=== PATIENT | female | born 1945 | race Caucasian/White ===

== ENCOUNTER 2022-10-06 19:48 | Emergency (ER) | payer MEDICARE, OTHER ==
[2022-10-06] MEDS ORDERED: Sodium Chloride 0.9% 1000 ML 1,000 ML IV STA (20:06)
[2022-10-06] MEDS ORDERED: Zofran 4 MG/2 ML VIAL IV ONE (20:07)
[2022-10-06] MEDS ORDERED: Adenocard IV 6 MG/2 ML IV ONE ×2 (20:07→20:08)
[2022-10-06] MEDS ORDERED: Sodium Chloride 0.9% 1000 ML 1,000 ML ONE (20:08)
[2022-10-06] MEDS ORDERED: Zofran 4 MG/2 ML VIAL ONE (20:10)
[2022-10-06 20:29] LABS: Absolute Neutrophil Ct (ANC) 5.34 x10^3/uL (1.4-6.9); Basophil (Absolute #) 0.03 x10^3/uL (0-0.4); Eosinophil % 0.6 % (0.00-5.0); Eosinophil (Absolute #) 0.04 x10^3/uL (0-0.5); Hematocrit 46.1 % (35-47); Hemoglobin 14.6 g/dL (12.0-16.0); Lymphocytes % 15.2 % (24.0-44.0); Mean Cell Volume 91.3 fL (78-100); Mean Corpuscular Hemoglobin 28.9 pg (26-32); Mean Corpuscular Hgb Concent. 31.7 g/dL (32-36); Mean Platelet Volume 10.7 fL (7.5-11.0); Monocyte (Absolute #) 0.69 x10^3/uL (0.0-1.3); Monocytes % 9.6 % (0.0-12.0); Neutrophil % 73.9 % (36.0-66.0); Platelet Count 189 x10^3/uL (150-450); Red Blood Count 5.05 x10^6/uL (4.1-5.4); Red Cell Distribution Width 13.4 % (11.5-14.0); White Blood Count 7.2 x10^3/uL (4.0-10.5)
[2022-10-06 20:52] LABS: ANION GAP 15.3 MEQ/L (5-15); BILIRUBIN,TOTAL 0.6 mg/dL (0.2-1.3); Calcium 8.5 mg/dL (8.4-10.2); Creatinine 1 1.2 mg/dL (0.52-1.04); EST GLOMERULAR FILTRATION RATE 46.5 ML/MIN; MAGNESIUM 1.7 mg/dL (1.6-2.3); Total Protein 6.7 g/dL (6.3-8.2)
[2022-10-06 20:56] VITALS: O2SAT 94
--- NOTE | 2022-10-06 21:27 | XRAY ---
Indication: Palpitations. Tachycardia. Comparison: January 07, 2012 Portable chest again demonstrates left mid lung subsegmental atelectasis/scarring. Remaining heart and lungs unremarkable. Bony thorax intact again with osteopenia and degenerative changes. No new/acute findings. Impression: Continued nonacute chest with chronic features.
--- NOTE | 2022-10-06 21:47 | ERPHSYRPT ---
- History of Present Illness Time Seen by Provider: 10/06/22 19:51 Historian: patient Exam Limitations: no limitations Patient Subjective Stated Complaint: pt stated she had been feeling like her heart rate was very high and when checked would not register on her monitor at home. pt states she has a hx of svt. Triage Nursing Assessment: pt alert and oriented, answers questions approp. pt back to room per wheelchair. respirations nonlabored. skin warm, moist on arrival to er. heart rate 150's on monitor. Physician History: 77 years old female with history of SVT, hypertension, congestive heart failure, obstructive sleep apnea presented in the ER with chief complaint of palpitations/racing of the heart for the last couple of hours. Patient reports it seems that she has SVT because she tried to check her heart rate and was not recordable. Patient does report some chest tightness and pressure associated with it. Reports having similar symptoms multiple times in the past needing adenosine and converts back to normal sinus. Patient reports having cough congestion for the last couple of days with low-grade fever and chills. Timing/Duration: hour(s) (2), constant, sudden Activities at Onset: rest Quality: fullness, pressure Location: substernal Chest Pain Radiation: no radiation Severity of Pain-Max: mild Severity of Pain-Current: mild Modifying Factors: Improves With: nothing Associated Symptoms: cough, chills, fever, fatigue Nitro Today/Relief: no nitro taken today Aspirin Treatment Today: 81 mg x 1 Allergies/Adverse Reactions: Sulfa (Sulfonamide Antibiotics) Allergy (Unknown, Verified 10/06/22 20:21) Hx Tetanus, Diphtheria Vaccination/Date Given: Yes Hx Influenza Vaccination/Date Given: No Hx Pneumococcal Vaccination/Date Given: Yes (aug 2011) Immunizations Up to Date: Yes Travel Risk - International Travel Have you traveled outside of the country in past 3 weeks: No - Coronavirus Screening Are you exhibiting any of the following symptoms?: Yes Symptoms: Fever, Cough: New Onset, Shortness of Breath Close contact with a COVID-19 positive Pt in past 14-21 Days: No - Vaccine Status Have you recieved a Covid-19 vaccination: Yes 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: [employer] - Review of Systems Constitutional: Fever, Chills, Fatigue, Weakness Eyes: No Symptoms Ears, Nose, & Throat: Nose Congestion Respiratory: Cough, Dyspnea Cardiac: Chest Pain Abdominal/Gastrointestinal: No Symptoms Genitourinary Symptoms: No Symptoms Musculoskeletal: No Symptoms Skin: No Symptoms Neurological: No Symptoms Psychological: No Symptoms Endocrine: No Symptoms Hematologic/Lymphatic: No Symptoms Immunological/Allergic: No Symptoms - Past Medical History Cardiac History: Arrhythmia Endocrine Medical History: Diabetes Type II GI Medical History: GERD Other Medical History: hx of svt - Past Surgical History Gastrointestinal: Cholecystectomy Genitourinary: Other Musculoskeletal: Orthopedic Surgery Female Surgical History: Hysterectomy Other Surgical History: thyroidectomy, bilat knee surgeries, achilles tendon, heel spur removal - Social History Smoking Status: Never smoker Exposure to second hand smoke: Yes Drug Use: none Patient Lives Alone: No - Nursing Vital Signs Nursing Vital Signs: Initial Vital Signs Pulse Rate 156 H 10/06/22 19:49 Respiratory Rate 18 10/06/22 19:49 Blood Pressure 109/65 10/06/22 19:49 O2 Sat by Pulse Oximetry 97 10/06/22 19:49 Pain Scale Pain Intensity 0 - Physical Exam General Appearance: no apparent distress, alert Eye Exam: PERRL/EOMI Ears, Nose, Throat Exam: moist mucous membranes, pharyngeal erythema Neck Exam: normal inspection, non-tender, supple, full range of motion Respiratory Exam: normal breath sounds, lungs clear Cardiovascular Exam: normal heart sounds, tachycardia Gastrointestinal/Abdomen Exam: soft, normal bowel sounds, No tenderness Back Exam: normal inspection, normal range of motion Extremity Exam: normal inspection, normal range of motion Neurologic Exam: alert, oriented x 3, cooperative Skin Exam: normal color SpO2 Interpretation: normal SpO2: 94 O2 Delivery: Room Air - Course EKG Interpreted by Me: RATE (151), SVT, NORMAL AXIS, NORMAL INTERVALS, Q-wave (Second EKG time 2013. Rate 105 rhythm sinus tach, left axis deviation, prolonged QT interval. No ST elevation. Third EKG time 2053. Rate 90, rhythm sinus, left axis deviation, anterior Q waves. No ST elevation.), Non-specific ST Changes Ordered Tests: Active Orders 24 hr Category Date Time Status Evs Manager STAT Care 10/06/22 20:06 Completed EKG-ER Only STAT Care 10/06/22 20:06 Completed IV Insertion STAT Care 10/06/22 20:06 Completed CHEST 1 VIEW (PORTABLE) Stat Exams 10/06/22 20:06 Completed BLOOD CULTURE Stat Lab 10/06/22 20:06 Received CBC W DIFF Stat Lab 10/06/22 20:26 Completed CMP Stat Lab 10/06/22 20:26 Completed Lactic Acid Stat Lab 10/06/22 20:27 Completed Lactic Acid Stat Lab 10/06/22 22:33 Completed MAGNESIUM Stat Lab 10/06/22 20:26 Completed NT PRO BNP Stat Lab 10/06/22 20:26 Completed PROCALCITONIN Stat Lab 10/06/22 20:26 Completed TROPONIN Q4H Lab 10/06/22 20:26 Completed Medication Summary Discontinued Medications Generic Name Dose Route Start Last Admin Trade Name Kolbyq PRN Reason Stop Dose Admin Adenosine 6 mg 10/06/22 20:07 10/06/22 20:13 Adenosine 6 Mg/2 Ml Vial IV 10/06/22 20:08 6 mg STAT ONE Administration Adenosine Confirm 10/06/22 20:08 Adenosine 6 Mg/2 Ml Vial Administered 10/06/22 20:09 Dose 6 mg IV .STK-MED ONE Doxycycline Hyclate 100 mg 10/06/22 21:57 10/06/22 22:24 Doxycycline Hyclate 100 Mg Tablet PO 10/06/22 21:58 100 mg STAT ONE Administration Doxycycline Hyclate Confirm 10/06/22 22:23 Doxycycline Hyclate 100 Mg Tablet Administered 10/06/22 22:24 Dose 100 mg .ROUTE .STK-MED ONE Sodium Chloride 1,000 mls @ 999 mls/hr 10/06/22 20:06 10/06/22 22:46 Sodium Chloride 0.9% 1000 Ml IV 10/06/22 21:06 Infused .Q1H1M STA Infusion Sodium Chloride Confirm 10/06/22 20:08 Sodium Chloride 0.9% 1000 Ml Administered 10/06/22 20:09 Dose 1,000 mls @ ud .ROUTE .STK-MED ONE Ondansetron HCl 4 mg 10/06/22 20:07 10/06/22 20:11 Ondansetron Hcl 4 Mg/2 Ml Vial IV 10/06/22 20:08 4 mg STAT ONE Administration Ondansetron HCl Confirm 10/06/22 20:10 Ondansetron Hcl 4 Mg/2 Ml Vial Administered 10/06/22 20:11 Dose 4 mg .ROUTE .STK-MED ONE Oseltamivir Phosphate 75 mg 10/06/22 23:01 11/26/22 23:02 Oseltamivir 75 Mg Cap PO 10/06/22 23:02 Not Given STAT ONE Lab/Rad Data: Laboratory Result Diagrams 10/06/22 20:26 10/06/22 20:26 Laboratory Results 10/06/22 10/06/22 10/06/22 Range/Units 22:33 21:24 20:27 WBC (4.0-10.5) x10^3/uL RBC (4.1-5.4) x10^6/uL Hgb (12.0-16.0) g/dL Hct (35-47) % MCV (78-100) fL MCH (26-32) pg MCHC (32-36) g/dL RDW (11.5-14.0) % Plt Count (150-450) x10^3/uL MPV (7.5-11.0) fL Gran % (36.0-66.0) % Immature Gran % (Auto) (0.00-0.4) % Nucleat RBC Rel Count (0.00-0.1) % Eos # (Auto) (0-0.5) x10^3/uL Immature Gran # (Auto) (0.00-0.03) x10^3u/L Absolute Lymphs (auto) (1.0-4.6) x10^3/uL Absolute Monos (auto) (0.0-1.3) x10^3/uL Absolute Nucleated RBC (0.00-0.01) x10^3u/L Lymphocytes % (24.0-44.0) % Monocytes % (0.0-12.0) % Eosinophils % (0.00-5.0) % Basophils % (0.0-0.4) % Absolute Granulocytes (1.4-6.9) x10^3/uL Basophils # (0-0.4) x10^3/uL Sodium (137-145) mmol/L Potassium (3.5-5.1) mmol/L Chloride (98-107) mmol/L Carbon Dioxide (22-30) mmol/L Anion Gap (5-15) MEQ/L BUN (7-17) mg/dL Creatinine (0.52-1.04) mg/dL Estimated GFR ML/MIN Glucose (74-106) mg/dL Lactic Acid 0.9 3.4 H (0.4-2.0) Calcium (8.4-10.2) mg/dL Magnesium (1.6-2.3) mg/dL Total Bilirubin (0.2-1.3) mg/dL AST (14-36) U/L ALT (0-35) U/L Alkaline Phosphatase (38-126) U/L Troponin I (0.000-0.034) ng/mL NT-Pro-B Natriuret Pep (0-1800) pg/mL Serum Total Protein (6.3-8.2) g/dL Albumin (3.5-5.0) g/dL Procalcitonin (0.030-0.080) ng/mL Influenza Type A Ag POSITIVE (NEGATIVE) Influenza Type B Ag NEGATIVE (NEGATIVE) RSV (PCR) NEGATIVE (Negative) SARS-CoV-2 (PCR) NEGATIVE (NEGATIVE) 10/06/22 10/06/22 10/06/22 Range/Units 20:26 20:26 20:26 WBC (4.0-10.5) x10^3/uL RBC (4.1-5.4) x10^6/uL Hgb (12.0-16.0) g/dL Hct (35-47) % MCV (78-100) fL MCH (26-32) pg MCHC (32-36) g/dL RDW (11.5-14.0) % Plt Count (150-450) x10^3/uL MPV (7.5-11.0) fL Gran % (36.0-66.0) % Immature Gran % (Auto) (0.00-0.4) % Nucleat RBC Rel Count (0.00-0.1) % Eos # (Auto) (0-0.5) x10^3/uL Immature Gran # (Auto) (0.00-0.03) x10^3u/L Absolute Lymphs (auto) (1.0-4.6) x10^3/uL Absolute Monos (auto) (0.0-1.3) x10^3/uL Absolute Nucleated RBC (0.00-0.01) x10^3u/L Lymphocytes % (24.0-44.0) % Monocytes % (0.0-12.0) % Eosinophils % (0.00-5.0) % Basophils % (0.0-0.4) % Absolute Granulocytes (1.4-6.9) x10^3/uL Basophils # (0-0.4) x10^3/uL Sodium 130 L (137-145) mmol/L Potassium 4.0 (3.5-5.1) mmol/L Chloride 94 L (98-107) mmol/L Carbon Dioxide 25 (22-30) mmol/L Anion Gap 15.3 H (5-15) MEQ/L BUN 17 (7-17) mg/dL Creatinine 1.20 H (0.52-1.04) mg/dL Estimated GFR 46.5 ML/MIN Glucose 219 H (74-106) mg/dL Lactic Acid (0.4-2.0) Calcium 8.5 (8.4-10.2) mg/dL Magnesium 1.7 (1.6-2.3) mg/dL Total Bilirubin 0.60 (0.2-1.3) mg/dL AST 26 (14-36) U/L ALT 20 (0-35) U/L Alkaline Phosphatase 90 (38-126) U/L Troponin I < 0.012 (0.000-0.034) ng/mL NT-Pro-B Natriuret Pep 347 (0-1800) pg/mL Serum Total Protein 6.7 (6.3-8.2) g/dL Albumin 4.0 (3.5-5.0) g/dL Procalcitonin 0.538 H (0.030-0.080) ng/mL Influenza Type A Ag (NEGATIVE) Influenza Type B Ag (NEGATIVE) RSV (PCR) (Negative) SARS-CoV-2 (PCR) (NEGATIVE) 10/06/22 Range/Units 20:26 WBC 7.2 (4.0-10.5) x10^3/uL RBC 5.05 (4.1-5.4) x10^6/uL Hgb 14.6 (12.0-16.0) g/dL Hct 46.1 (35-47) % MCV 91.3 (78-100) fL MCH 28.9 (26-32) pg MCHC 31.7 L (32-36) g/dL RDW 13.4 (11.5-14.0) % Plt Count 189 (150-450) x10^3/uL MPV 10.7 (7.5-11.0) fL Gran % 73.9 H (36.0-66.0) % Immature Gran % (Auto) 0.3 (0.00-0.4) % Nucleat RBC Rel Count 0.0 (0.00-0.1) % Eos # (Auto) 0.04 (0-0.5) x10^3/uL Immature Gran # (Auto) 0.02 (0.00-0.03) x10^3u/L Absolute Lymphs (auto) 1.10 (1.0-4.6) x10^3/uL Absolute Monos (auto) 0.69 (0.0-1.3) x10^3/uL Absolute Nucleated RBC 0.00 (0.00-0.01) x10^3u/L Lymphocytes % 15.2 L (24.0-44.0) % Monocytes % 9.6 (0.0-12.0) % Eosinophils % 0.6 (0.00-5.0) % Basophils % 0.4 (0.0-0.4) % Absolute Granulocytes 5.34 (1.4-6.9) x10^3/uL Basophils # 0.03 (0-0.4) x10^3/uL Sodium (137-145) mmol/L Potassium (3.5-5.1) mmol/L Chloride (98-107) mmol/L Carbon Dioxide (22-30) mmol/L Anion Gap (5-15) MEQ/L BUN (7-17) mg/dL Creatinine (0.52-1.04) mg/dL Estimated GFR ML/MIN Glucose (74-106) mg/dL Lactic Acid (0.4-2.0) Calcium (8.4-10.2) mg/dL Magnesium (1.6-2.3) mg/dL Total Bilirubin (0.2-1.3) mg/dL AST (14-36) U/L ALT (0-35) U/L Alkaline Phosphatase (38-126) U/L Troponin I (0.000-0.034) ng/mL NT-Pro-B Natriuret Pep (0-1800) pg/mL Serum Total Protein (6.3-8.2) g/dL Albumin (3.5-5.0) g/dL Procalcitonin (0.030-0.080) ng/mL Influenza Type A Ag (NEGATIVE) Influenza Type B Ag (NEGATIVE) RSV (PCR) (Negative) SARS-CoV-2 (PCR) (NEGATIVE) - Progress Progress: improved Air Movement: good Progress Note: 77-year-old is evaluated for palpitations. Patient is in SVT. Given adenosine 6 and she converted to normal sinus. I have obtained an x-ray which negative for any acute cardiopulmonary findings. She has a normal white count, chemistry profile showed mild SIMIN and given a fluid bolus. Patient has a positive lactate of 3.4 and procalcitonin 0.5. I believe patient has bronchitis, started on doxycycline as patient does not want to stay in the hospital and preferred to go home. She also has positive influenza A and started on Tamiflu. She remained in sinus rhythm throughout her stay in the ER. I have offered her observation admission but she does not want to stay in the hospital and wants to go home. Discussed signs symptoms of worsening needing return to ER which she seems under standing. Stable for discharge. 10/06/22 23:01 Blood Culture(s) Obtained: Yes Antibiotics given: Yes Counseled pt/family regarding: lab results, diagnosis, rad results - Departure Departure Disposition: Home Clinical Impression: Paroxysmal SVT (supraventricular tachycardia), Influenza A, Bronchitis Condition: Stable Critical Care Time: Yes Critical Care Time(excluding separately billable procedures): Critical 30-74 mins Referrals: WHIT CLOUD MD [Primary Care Provider] - Follow up/PCP as directed (In 2 days for reevaluation) KIM TOM [ACTIVE STAFF] - Follow up/PCP as directed (Call Saturday morning for appointment for reevaluation) Instructions: Flu, Adult (DC), Supraventricular Tachycardia (SVT) Additional Instructions: Take Tylenol as needed. Follow-up with primary care for reevaluation. Return to ER for worsening of symptoms like productive cough, difficulty breathing, hi gh-grade fever chills etc. Follow-up with your computer assistant for reevaluation. Prescriptions: Oseltamivir 75 mg [Tamiflu 75MG Capsule] 75 mg PO BID #10 cap Doxycycline Hyclate 100 mg [Vibramycin 100 MG] 100 mg PO BID #14 tab
[2022-10-06] MEDS ORDERED: Vibramycin 100 MG PO ONE (21:57)
[2022-10-06 22:07] LABS: INFLUENZA B NEGATIVE (NEGATIVE); RESPIRATORY SYNCTIAL VIRUS NEGATIVE (Negative); SARS-CoV-2 Xpert Express NEGATIVE (NEGATIVE)
[2022-10-06 22:11] LABS: INFLUENZA A POSITIVE (NEGATIVE)
[2022-10-06] MEDS ORDERED: Vibramycin 100 MG ONE (22:23)
[2022-10-06] MEDS ORDERED: Tamiflu 75MG Capsule PO ONE (23:01)
[2022-10-06 23:04] VITALS: BP 146/77; PULSE 77
== END 2022-10-06 23:38 | disposition home or self-care (01) ==
LOC: ED 19:48
DX: I47.1 Supraventricular tachycardia (principal); J10.1 Influenza due to other identified influenza virus with other respiratory manifestations; J40 Bronchitis, not specified as acute or chronic; R07.9 Chest pain, unspecified; R05.1 Acute cough; R09.81 Nasal congestion; R50.9 Fever, unspecified; I11.0 Hypertensive heart disease with heart failure; I50.9 Heart failure, unspecified; E11.9 Type 2 diabetes mellitus without complications
CPT/HCPCS: 0241U; 36000; 36415; 71045; 80053; 83605; 83735; 83880; 84145; 84484; 85025; 87040; 93005; 93041; 96374; 96375; 99284; 99291; J0153; J2405; A9270-GY

== ENCOUNTER 2024-05-19 12:31 | Emergency (ER) | payer MEDICARE, OTHER ==
[2024-05-19 12:51] VITALS: RESP 20; TEMP 97.8; O2SAT 97
--- NOTE | 2024-05-19 13:08 | ERPHSYRPT ---
- History of Present Illness Time Seen by Provider: 05/19/24 13:00 Source: patient Exam Limitations: no limitations Patient Subjective Stated Complaint: PT states "I have had a hernia for years but it split open yesterday and I went to the clinic and they told me that it w as infected and gave me an antibiotic and cream. It is split open twice as much today as yesterday." Triage Nursing Assessment: PT presented alert and oriented X 3, skin wpd. Pt ambulates with a slow gait, able to speak in clear full sentences. Pt has red raised wound noted to right lower abdomen wound has slight pirulent discharge Physician History: 78-year-old female presents to our ED for an evaluation of an abscess that spontaneously drained. Patient states the abscess began as a pustule. An increase in size she followed up at urgent care. Patient was started on doxycycline. Overnight the pustule ruptured and is now draining. Patient became concerned and came to our ED. No systemic manifestations. No fever. Pain is minimal. Patient declined pain medication. Patient voices no other complaints or concerns at this time. Portions of this note were created with voice recognition technology. There may be grammatical, spelling, punctuation or sound alike errors Timing/Duration: yesterday Severity: moderate Modifying Factors: Improves With: nothing Associated Symptoms: denies symptoms Allergies/Adverse Reactions: Sulfa (Sulfonamide Antibiotics) Allergy (Unknown, Verified 10/06/22 20:21) Home Medications: Mupirocin 1 gm TP DAILY 05/19/24 [History] Hx Tetanus, Diphtheria Vaccination/Date Given: Yes Hx Influenza Vaccination/Date Given: No Hx Pneumococcal Vaccination/Date Given: Yes (aug 2011) Immunizations Up to Date: No Travel Risk - International Travel Have you traveled outside of the country in past 3 weeks: No - Emerging Infectious Disease Are you exhibiting symptoms associated with any current EIDs: No - Review of Systems Constitutional: No Symptoms, No Fever, No Chills Eyes: No Symptoms Ears, Nose, & Throat: No Symptoms Respiratory: No Symptoms, No Cough, No Dyspnea Cardiac: No Symptoms, No Chest Pain, No Edema, No Syncope Abdominal/Gastrointestinal: No Symptoms, No Abdominal Pain, No Nausea, No Vomiting, No Diarrhea Genitourinary Symptoms: No Symptoms, No Dysuria Musculoskeletal: No Symptoms, No Back Pain, No Neck Pain Skin: No Symptoms, No Rash Neurological: No Symptoms, No Dizziness, No Focal Weakness, No Sensory Changes Psychological: No Symptoms Endocrine: No Symptoms Hematologic/Lymphatic: No Symptoms Immunological/Allergic: No Symptoms All Other Systems: Reviewed and Negative - Past Medical History Neurological History: No Pertinent History Cardiac History: High Cholesterol, Hypertension, Other Respiratory History: Sleep Apnea Endocrine Medical History: Diabetes Type II, Hypothyroidism Musculoskeletal History: Osteoarthritis, Other GI Medical History: GERD Other Medical History: HX KIDNEY STONES THOUGH NOT FOR SEVERAL YEARS. PT. HAD THRYOIDECTOMY D/T GOITER 1990; SVT HX. SHOULDER PN AND P.T. 'SCOPES BILATERAL KNEES; ACHLLIES' TENDON REPAIR; HX PANCREATIC CYST; PT. HAS LOWER ABD HERNIA - Past Surgical History Gastrointestinal: Cholecystectomy Genitourinary: Other Musculoskeletal: Orthopedic Surgery Female Surgical History: Hysterectomy Other Surgical History: thyroidectomy, bilat knee surgeries, achilles tendon, heel spur removal - Social History Smoking Status: Never smoker Exposure to second hand smoke: Yes Drug Use: none Patient Lives Alone: No - Social Determinants of Health Will the patient participate in the screening: Declined to provide - Nursing Vital Signs Nursing Vital Signs: Initial Vital Signs Temperature 97.8 F 05/19/24 12:44 Pulse Rate 70 05/19/24 12:44 Respiratory Rate 20 05/19/24 12:44 Blood Pressure 206/83 05/19/24 12:44 O2 Sat by Pulse Oximetry 97 05/19/24 12:44 Pain Scale Pain Intensity 4 - Physical Exam General Appearance: no apparent distress, alert Eye Exam: PERRL/EOMI, eyes nml inspection Ears, Nose, Throat Exam: normal ENT inspection, TMs normal, pharynx normal, moist mucous membranes Neck Exam: normal inspection, non-tender, supple, full range of motion Respiratory Exam: normal breath sounds, lungs clear, airway intact, No respiratory distress Cardiovascular Exam: regular rate/rhythm, normal heart sounds, normal peripheral pulses Gastrointestinal/Abdomen Exam: soft, normal bowel sounds, No tenderness, No mass Back Exam: normal inspection, normal range of motion, No CVA tenderness, No vertebral tenderness Extremity Exam: normal inspection, normal range of motion, pelvis stable Neurologic Exam: alert, oriented x 3, cooperative, normal mood/affect, sensation nml, No motor deficits Skin Exam: normal color, warm, dry, No rash Lymphatic Exam: No adenopathy SpO2 Interpretation: normal SpO2: 97 O2 Delivery: Room Air (Wound measures 4 x 2 cm.) - Course Nursing assessment & vital signs reviewed: Yes - Progress Progress: improved Progress Note: 78-year-old female presents to our ED for evaluation of a wound right lower abdomen. Wound started out as a pustule. Wound progressed. Patient currently on doxycycline. No indication to change this antibiotic. However the wound needs debridement. We contacted physical therapy. A prescription was written. Patient will go down to physical therapy to schedule a visit with the wound care clinic for debridement. I spoke to the physical therapist directly and clarified the orders. They are to debride the wound. Patient be referred to Dr. Cloud for follow-up. If the debridement is too extensive for them patient to be referred to physical therapy. Plan of care discussed with patient. Patient understands and will follow-up with the wound care clinic as discussed. She voices no other complaints or concerns at this time. Portions of this note were created with voice recognition technology. There may be grammatical, spelling, punctuation or sound alike errors Complexity problem addressed is moderate acute complicated. No critical care time. Complexity of data reviewed and analyzed is none. Diagnosis made based on history and physical exam. Risk of complication and or risk of morb idity/mortality patient management is low. Patient referred to physical therapy wound care for evaluation and treatment. Vital stable. Time spent to discharge patient is approximately 10 minutes. Plan of care established for shared decision making. No social determinants of health present impede follow- up Portions of this note were created with voice recognition technology. There may be grammatical, spelling, punctuation or sound alike errors 05/19/24 13:15 Counseled pt/family regarding: diagnosis, need for follow-up - Departure Departure Disposition: Home Clinical Impression: Abscess Condition: Stable Critical Care Time: No Referrals: WHIT CLOUD MD [Primary Care Provider] - Follow up/PCP as directed Additional Instructions: Discharge/Care Plan JEF MARINO was seen on 05/19/24 in the Emergency Room. The patient was counseled regarding Diagnosis,Lab results, Imaging studies, need for follow up and when to return to the Emergency Room. Prescriptions given: Discharge Note I have spoken with the patient and/or caregivers. I have explained the patient's condition, diagnosis and treatment plan based on the information available to me at this time. I have answered the patient's and/or caregiver's questions and addressed any concerns. The patient and/or caregivers have as good understanding of the patient's diagnosis, condition and treatment plan as can be expected at this point. The vital signs have been stable. The patient's condition is stable and appropriate for discharge from the emergency department. The patient will pursue further outpatient evaluation with the primary care physician or other designated or consulting physician as outlined in the discharge instructions. The patient and/or caregivers are agreeable to this plan of care and follow-up instructions have been explained in detail. The patient and/or caregivers have received these instruction. The patient/and or caregivers are aware that any significant change in condition or worsening of symptoms should prompt an immediate return to this or the closest emergency department or call 911.
[2024-05-19 13:14] VITALS: BP 201/89; PULSE 64
== END 2024-05-19 13:30 | disposition home or self-care (01) ==
LOC: ED 12:31
DX: L02.211 Cutaneous abscess of abdominal wall (principal); E78.5 Hyperlipidemia, unspecified; I10 Essential (primary) hypertension; E11.9 Type 2 diabetes mellitus without complications; Z79.899 Other long term (current) drug therapy
CPT/HCPCS: 87070; 87077; 87186; 99282

== ENCOUNTER 2024-11-09 09:43 | Emergency (ER) | payer MEDICARE, OTHER ==
--- NOTE | 2024-11-09 09:48 | ERPHSYRPT ---
- History of Present Illness Time Seen by Provider: 11/09/24 09:47 Source: patient, family Exam Limitations: no limitations Physician History: This is an obese 79-year-old white female patient of Dr. Cloud who presents to the emergency department by private vehicle with 2 issues. She states that she has a history of SVT and this morning her heart rate was in the 150s. She vomited and that rapid heart rate sensation resolved. She also has right side toothache. She did call her dentist. Her dentist stated that since she is going to the emergency department for the other issue she request to be placed on antibiotics. Patient had chest pain that was slight at the time of her rapid heart rate but no longer has chest pain. Patient states the refuse driver, Dr. Salazar, is aware of her condition. Patient had a failed attempt of a cardiac ablation in the past per her report patient has a history of hypothyroidism, type 2 diabetes, hyperlipidemia, hypertension and gastroesophageal reflux disease Timing/Duration: today Activities at Onset: none (No chest pain now) Location: other Chest Pain Radiation: no radiation Severity of Pain-Max: mild Severity of Pain-Current: none Nitro Today/Relief: no nitro taken today Aspirin Treatment Today: no aspirin today Associated Symptoms: other (Right side lower molar toothache) Prior Chest Pain/Cardiac Workup: cardiac cath Allergies/Adverse Reactions: Sulfa (Sulfonamide Antibiotics) Allergy (Unknown, Verified 11/09/24 10:01) Home Medications: Levothyroxine Sodium 150 Mcg [Synthroid 150 Mcg] 150 mcg PO DAILY 11/09/24 [History] Magnesium Oxide 400 mg [Mag-Ox 400] 400 mg PO DAILY 11/09/24 [History] Metoprolol Succinate 50 mg [Toprol Xl 50 MG] 50 mg PO BID 11/09/24 [History] Omeprazole 40 mg PO DAILY 11/09/24 [History] Pitavastatin Calcium [Livalo] 1 mg PO DAILY 11/09/24 [History] Potassium Chloride 20 meq PO DAILY 11/09/24 [History] Telmisartan 80 mg [Micardis 80 MG Tablet] 80 mg PO DAILY 11/09/24 [History] Verapamil HCl [Verapamil Sr] 120 mg PO DAILY 11/09/24 [History] glipiZIDE [Glipizide ER] 2.5 mg PO DAILY 11/09/24 [History] Hx Tetanus, Diphtheria Vaccination/Date Given: Yes Hx Influenza Vaccination/Date Given: No Hx Pneumococcal Vaccination/Date Given: Yes (aug 2011) Travel Risk - International Travel Have you traveled outside of the country in past 3 weeks: No - Emerging Infectious Disease Are you exhibiting symptoms associated with any current EIDs: No - Review of Systems Constitutional: No Symptoms Eyes: No Symptoms Ears, Nose, & Throat: Other (Right lower molar dental pain) Respiratory: No Symptoms Cardiac: No Symptoms Abdominal/Gastrointestinal: No Symptoms Genitourinary Symptoms: No Symptoms Musculoskeletal: No Symptoms Skin: No Symptoms Neurological: No Symptoms Psychological: No Symptoms Endocrine: No Symptoms Hematologic/Lymphatic: No Symptoms Immunological/Allergic: No Symptoms All Other Systems: Reviewed and Negative - Past Medical History Neurological History: Seizures Cardiac History: High Cholesterol, Hypertension, Other Respiratory History: No Pertinent History Endocrine Medical History: Diabetes Type II, Hypothyroidism Musculoskeletal History: No Pertinent History GI Medical History: GERD Other Medical History: PATIENT HAS PASSED OUT 2X IN ONE WEEK 4 YEARS AGO. STV, FAST HEART BEAT. ABLATION DID NOT HELP. - Past Surgical History Gastrointestinal: Cholecystectomy Genitourinary: Other Musculoskeletal: Orthopedic Surgery Female Surgical History: Hysterectomy Other Surgical History: thyroidectomy, bilat knee surgeries, achilles tendon, heel spur removal - Social History Smoking Status: Never smoker Exposure to second hand smoke: Yes Drug Use: none Patient Lives Alone: No - Social Determinants of Health Will the patient participate in the screening: Declined to provide - Nursing Vital Signs Nursing Vital Signs: Initial Vital Signs Temperature 97.7 F 11/09/24 09:48 Pulse Rate 88 11/09/24 09:48 Respiratory Rate 19 11/09/24 09:48 Blood Pressure 180/119 11/09/24 09:48 O2 Sat by Pulse Oximetry 96 11/09/24 09:48 Pain Scale Pain Intensity 0 - Physical Exam General Appearance: no apparent distress, alert, anxiety Eye Exam: PERRL/EOMI, eyes nml inspection Ears, Nose, Throat Exam: normal ENT inspection, moist mucous membranes Neck Exam: normal inspection, non-tender, supple, full range of motion Respiratory Exam: normal breath sounds, lungs clear, airway intact, No chest tenderness, No respiratory distress Cardiovascular Exam: regular rate/rhythm, normal heart sounds, normal peripheral pulses Gastrointestinal/Abdomen Exam: soft, normal bowel sounds, No tenderness Pelvic Exam: not done Rectal Exam: not done Back Exam: normal inspection, normal range of motion, No CVA tenderness, No vertebral tenderness Extremity Exam: normal inspection, normal range of motion, pelvis stable Neurologic Exam: alert, oriented x 3, cooperative, 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 There is prolonged AR interval. QTc is 431) Ordered Tests: Active Orders 24 hr Category Date Time Status EKG-ER Only STAT Care 11/09/24 10:09 Active Pulse Oximetry (ED) STAT Care 11/09/24 10:09 Active AMYLASE Stat Lab 11/09/24 10:25 Completed CBC W DIFF Stat Lab 11/09/24 10:09 Completed CMP Stat Lab 11/09/24 10:25 Completed LIPASE Stat Lab 11/09/24 10:25 Completed MAGNESIUM Stat Lab 11/09/24 10:25 Completed NT PRO BNPII Stat Lab 11/09/24 10:25 Completed TROPONIN Q4H Lab 11/09/24 10:25 Completed TROPONIN Q4H Lab 11/09/24 14:15 Ordered TROPONIN Q4H Lab 11/09/24 18:15 Ordered TSH [TSH, 3RD Generation] Stat Lab 11/09/24 10:25 Received Lab/Rad Data: Laboratory Result Diagrams 11/09/24 10:09 11/09/24 10:25 Laboratory Results 11/09/24 11/09/24 11/09/24 Range/Units 10:25 10:25 10:25 WBC (3.98-10.04) x10^3/uL RBC (3.93-5.22) x10^6/uL Hgb (11.2-15.7) g/dL Hct (34.1-44.9) % MCV (79.4-94.8) fL MCH (25.6-32.2) pg MCHC (32.2-35.5) g/dL RDW (11.7-14.4) % Plt Count (182-369) x10^3/uL MPV (9.4-12.3) fL Gran % (34.0-71.1) % Immature Gran % (Auto) (0.001-0.429) % Nucleat RBC Rel Count (0.00-0.2) % Eos # (Auto) (0.04-0.36) x10^3/uL Immature Gran # (Auto) (0.001-0.031) x10^3u/L Absolute Lymphs (auto) (1.18-3.74) x10^3/uL Absolute Monos (auto) (0.24-0.86) x10^3/uL Absolute Nucleated RBC (0.00-0.012) x10^3u/L Lymphocytes % (19.3-51.7) % Monocytes % (4.7-12.5) % Eosinophils % (0.7-5.8) % Basophils % (0.1-1.2) % Absolute Granulocytes (1.56-6.13) x10^3/uL Basophils # (0.01-0.08) x10^3/uL Sodium 138 (135-145) mmol/L Potassium 3.7 (3.5-5.1) mmol/L Chloride 106 (98-107) mmol/L Carbon Dioxide 21 L (22-30) mmol/L Anion Gap 14.9 (5-15) MEQ/L BUN 17 (7-17) mg/dL Creatinine 0.85 (0.52-1.04) mg/dL Estimated GFR 70.5 ML/MIN Glucose 204 H (74-106) mg/dL Calcium 9.2 (8.4-10.2) mg/dL Magnesium 1.9 (1.6-2.3) mg/dL Total Bilirubin 0.80 (0.2-1.3) mg/dL AST 30 (14-36) U/L ALT 27 (0-35) U/L Alkaline Phosphatase 101 (38-126) U/L Troponin I < 0.012 (0.000-0.033) ng/mL NT-Pro-B Natriuret Pep 421 (<300) pg/mL Serum Total Protein 6.5 (6.3-8.2) g/dL Albumin 4.0 (3.5-5.0) g/dL Amylase 55 (30-110) U/L Lipase 94 (23-300) U/L Free T4 1.32 (0.78-2.19) ng/dL 11/09/24 Range/Units 10:09 WBC 8.4 (3.98-10.04) x10^3/uL RBC 5.00 (3.93-5.22) x10^6/uL Hgb 14.4 (11.2-15.7) g/dL Hct 45.3 H (34.1-44.9) % MCV 90.6 (79.4-94.8) fL MCH 28.8 (25.6-32.2) pg MCHC 31.8 L (32.2-35.5) g/dL RDW 13.3 (11.7-14.4) % Plt Count 203 (182-369) x10^3/uL MPV 10.1 (9.4-12.3) fL Gran % 81.3 H (34.0-71.1) % Immature Gran % (Auto) 0.6 H (0.001-0.429) % Nucleat RBC Rel Count 0.0 (0.00-0.2) % Eos # (Auto) 0.04 (0.04-0.36) x10^3/uL Immature Gran # (Auto) 0.05 H (0.001-0.031) x10^3u/L Absolute Lymphs (auto) 1.06 L (1.18-3.74) x10^3/uL Absolute Monos (auto) 0.37 (0.24-0.86) x10^3/uL Absolute Nucleated RBC 0.00 (0.00-0.012) x10^3u/L Lymphocytes % 12.6 L (19.3-51.7) % Monocytes % 4.4 L (4.7-12.5) % Eosinophils % 0.5 L (0.7-5.8) % Basophils % 0.6 (0.1-1.2) % Absolute Granulocytes 6.86 H (1.56-6.13) x10^3/uL Basophils # 0.05 (0.01-0.08) x10^3/uL Sodium (135-145) mmol/L Potassium (3.5-5.1) mmol/L Chloride (98-107) mmol/L Carbon Dioxide (22-30) mmol/L Anion Gap (5-15) MEQ/L BUN (7-17) mg/dL Creatinine (0.52-1.04) mg/dL Estimated GFR ML/MIN Glucose (74-106) mg/dL Calcium (8.4-10.2) mg/dL Magnesium (1.6-2.3) mg/dL Total Bilirubin (0.2-1.3) mg/dL AST (14-36) U/L ALT (0-35) U/L Alkaline Phosphatase (38-126) U/L Troponin I (0.000-0.033) ng/mL NT-Pro-B Natriuret Pep (<300) pg/mL Serum Total Protein (6.3-8.2) g/dL Albumin (3.5-5.0) g/dL Amylase (30-110) U/L Lipase (23-300) U/L Free T4 (0.78-2.19) ng/dL - Progress Progress: improved Air Movement: good Progress Note: 11/09/24 10:22 My medical decision making and the assignment of moderate complexity to this patient's medical issue today is based on review of the patient's past medical history, review the patient's medication list, reviewed patient drug allergy list, history present illness and physical findings on examination. The workup in this patient includes CBC, CMP, T4, TSH, BNP, twelve-lead EKG, troponin level, magnesium level. At the patient request, she wanted us to check her amylase and lipase. Differential diagnosis includes but is not limited to electrolyte abnormalities, acute myocardial infarction, arrhythmias, dental infection 11/09/24 11:20 The patient does not have chest pain. The patient has normal sinus rhythm. I interpreted the patient's laboratory data results. Based on the laboratory data results, the patient does not have any acute, emergent medical issue. Blood Culture(s) Obtained: No Antibiotics given: No Counseled pt/family regarding: lab results, diagnosis, need for follow-up Medical Desision Making - Diagnostic Testing Diagnostic test were ordered, analyzed, and reviewed by me: Yes - Risk of complications The pt has a mod risk of morbidity or mortality based on: Need for prescription drug management - Departure Departure Disposition: Home Clinical Impression: Pain due to dental caries, Normal sinus rhythm Condition: Stable Critical Care Time: No Referrals: WHIT CLOUD MD [Primary Care Provider] - Follow up/PCP as directed Additional Instructions: Continue your medications as prescribed. Call your refuse driver and primary care provider today, as well as a dentist, to make arrangements for follow-up appointment for further evaluation and management. Prescriptions: Amoxicillin 500 mg Cap [Amoxil 500 mg] 500 mg PO TID #21 cap
[2024-11-09 10:00] VITALS: TEMP 97.7
[2024-11-09 10:43] LABS: Absolute Neutrophil Ct (ANC) 6.86 x10^3/uL (1.56-6.13); BASOPHIL % 0.6 % (0.1-1.2); Basophil (Absolute #) 0.05 x10^3/uL (0.01-0.08); Eosinophil % 0.5 % (0.7-5.8); Eosinophil (Absolute #) 0.04 x10^3/uL (0.04-0.36); Hematocrit 45.3 % (34.1-44.9); Hemoglobin 14.4 g/dL (11.2-15.7); IMMATURE GRAN # 0.05 x10^3u/L (0.001-0.031); IMMATURE GRAN % 0.6 % (0.001-0.429); Lymphocyte (Absolute #) 1.06 x10^3/uL (1.18-3.74); Lymphocytes % 12.6 % (19.3-51.7); Mean Cell Volume 90.6 fL (79.4-94.8); Mean Corpuscular Hemoglobin 28.8 pg (25.6-32.2); Mean Corpuscular Hgb Concent. 31.8 g/dL (32.2-35.5); Mean Platelet Volume 10.1 fL (9.4-12.3); Monocyte (Absolute #) 0.37 x10^3/uL (0.24-0.86); Monocytes % 4.4 % (4.7-12.5); Neutrophil % 81.3 % (34.0-71.1); Platelet Count 203 x10^3/uL (182-369); Red Cell Distribution Width 13.3 % (11.7-14.4); White Blood Count 8.4 x10^3/uL (3.98-10.04)
[2024-11-09 10:47] LABS: ANION GAP 14.9 MEQ/L (5-15); BILIRUBIN,TOTAL 0.8 mg/dL (0.2-1.3); Calcium 9.2 mg/dL (8.4-10.2); Creatinine 1 0.85 mg/dL (0.52-1.04); EST GLOMERULAR FILTRATION RATE 70.5 ML/MIN; MAGNESIUM 1.9 mg/dL (1.6-2.3); Potassium 3.7 mmol/L (3.5-5.1); Total Protein 6.5 g/dL (6.3-8.2)
[2024-11-09 11:13] VITALS: RESP 14; O2SAT 97
[2024-11-09 11:34] VITALS: BP 140/84; PULSE 81
== END 2024-11-09 11:37 | disposition home or self-care (01) ==
LOC: ED 09:43
DX: K02.9 Dental caries, unspecified (principal); K08.89 Other specified disorders of teeth and supporting structures; R00.0 Tachycardia, unspecified; E11.9 Type 2 diabetes mellitus without complications; E78.5 Hyperlipidemia, unspecified; I10 Essential (primary) hypertension; Z79.84 Long term (current) use of oral hypoglycemic drugs; Z79.899 Other long term (current) drug therapy
CPT/HCPCS: 36415; 80053; 82150; 83690; 83735; 83880; 84439; 84443; 84484; 85025; 93005; 94760; 99283; 99284